=== PATIENT | male | born 1995 | race Caucasian/White ===

== ENCOUNTER 2016-11-20 21:28 | Emergency (ER) | payer BC ==
[~2016-11-20] VITALS: Ht 190.5 cm; Wt 88.5 kg
[2016-11-20 21:30] VITALS: TEMP 36.8; Ht 190.5 cm; Wt 88.5 kg
[2016-11-20] MEDS ORDERED: [UNRECOGNIZED DRUG - OTHER] PO (21:48)
[2016-11-20 22:17] LABS: BASO % 0.3 %; BASO ABS # 0.04 K/uL (0-0.2); COMPLETE YES; EOS % 1.6 %; HEMATOCRIT 47.6 % (42-52); IG% 0.3 %; LYMPH % 23.3 %; LYMPH ABS # 3.09 K/uL (1.2-3.4); MEAN CELL VOLUME 86.4 fL (80-100); MEAN CORPUSCULAR HEMOGLOBIN 30.7 pg (25-34); MEAN CORPUSCULAR HGB CONC 35.5 g/dl (32-36); NEUT % 64.5 %; PLATELET COUNT 328 K/uL (130-400); RED BLOOD COUNT 5.51 M/uL (4.7-6.1); WHITE BLOOD COUNT 13.24 K/uL (4.8-10.8)
[2016-11-20 22:33] LABS: BUN/CREATININE RATIO 18.5 (10-20); CALCIUM 9.4 mg/dl (8.5-10.1); POTASSIUM 3.3 mmol/L (3.5-5.1)
[2016-11-20] MEDS ORDERED: POTASSIUM CHLORIDE 10 MEQ TABCR PO STA (22:58)
[2016-11-20 23:03] LABS: URINE APPEARANCE CLEAR (CLEAR); URINE BILIRUBIN NEG (NEG); URINE COLOR YELLOW; URINE EPITHELIAL CELL AUTO 0-5 /lpf (0-5); URINE NITRITE NEG (NEG); URINE SPECIFIC GRAVITY 1.024 (1.000-1.030); UROBILINOGEN NEG (NEG); ZZUR CULT IF INDIC CLEAN CATCH NO
[2016-11-20 23:21] LABS: MANUAL MICROSCOPIC REQUIRED? NO; REVIEW REQ? NO
[2016-11-21] MEDS ORDERED: CEFTRIAXONE SOD 350MG/ML 1 GM VIAL IM STA (00:05)
[2016-11-21] MEDS ORDERED: DOXYCYCLINE HYCLATE 100 MG CAP PO ONE (00:15)
[2016-11-21] MEDS ORDERED: DOXY100C2 PO (00:18)
--- NOTE | 2016-11-21 00:31 | EMERGENCY ROOM VISIT NOTE ---
History First contact with patient: 21:37 Chief Complaint: TESTICULAR PAIN Stated Complaint: SWOLLEN AND PAINFUL R TESTICLE Nursing Triage Summary: C/o right testicular pain and swelling. Pt states right testicle "feels higher than normal". History of Present Illness The patient is a 21 year old male who presents to the Emergency Room with complaints of right ear pain and swelling for the past day. He describes the pain as aching, ranging in severity 5 out of 10. Nothing makes it better or worse. It does not radiate. Patient denies penile pain, penile discharge, rashes, exposure to STIs, fever, chills, back pain, abdominal pain, nausea, vomiting, diarrhea or any other medical complaints. No prior problems with his testicles. No injury to the area. no prior STIs. Review of Systems See HPI for pertinent positives & negatives. A total of 10 systems reviewed and were otherwise negative. Past Medical/Surgical History none Social History Smoking Status: Never Smoker Smokeless Tobacco Use: No Drug Use: none Occupation Status: [employer] student Current/Historical Medications Scheduled PRN [Neutrotropic Vitamin], 1 CAP PO DAILY PRN for Physical Exam Vital Signs Date Time Temp Pulse Resp B/P (MAP) Pulse Ox O2 Delivery O2 Flow Rate FiO2 11/20/16 23:31 76 18 162/94 99 Room Air 11/20/16 21:30 36.8 75 16 176/93 100 Room Air Physical Exam VITALS: Vitals are noted on the nurse's note and reviewed by myself. Vital signs stable. GENERAL: Pleasant male pacing the room who appears anxious, in no acute distress , nondiaphoretic, well-developed well-nourished. SKIN: Capillary reflex less than 2 seconds. HEENT: Normocephalic. PERRLA. EOMI. Nares patent. Mucous membranes moist. Neck is supple without nuchal rigidity. HEART: Regular rate and rhythm without murmurs gallops or rubs. LUNGS: Clear to auscultation bilaterally without wheezes, rales or rhonchi. No retractions or accessory muscle use. ABDOMEN: Positive bowel sounds x 4. Normal tympanic percussion. Soft, nontender, without masses or organomegaly. Mejia sign negative. No guarding or rebound tenderness. No CVA tenderness exam: Normal external male genitalia without rashes or lesions, right testicle right epididymis excessively tender to palpation easily reproducing symptoms, left testicle nontender, penis nontender without discharge. Cremasteric reflex intact bilaterally MUSCULOSKELETAL: No gross musculoskeletal defects. NEURO: Patient was alert and oriented to person place and time. Normal sensation to light and sharp touch. No focal neurological deficits. Medical Decision & Procedures Laboratory Results 11/20/16 22:05 Red Blood Count 5.51, Mean Corpuscular Volume 86.4, Mean Corpuscular Hemoglobin 30.7, Mean Corpuscular Hemoglobin Concent 35.5, Mean Platelet Volume 9.0, Neutrophils (%) (Auto) 64.5, Lymphocytes (%) (Auto) 23.3, Monocytes (%) (Auto) 10.0, Eosinophils (%) (Auto) 1.6, Basophils (%) (Auto) 0.3, Neutrophils # (Auto ) 8.53, Lymphocytes # (Auto) 3.09, Monocytes # (Auto) 1.33, Eosinophils # (Auto ) 0.21, Basophils # (Auto) 0.04 11/20/16 22:05 Test 11/20/16 22:05 11/20/16 22:50 White Blood Count 13.24 K/uL (4.8-10.8) Red Blood Count 5.51 M/uL (4.7-6.1) Hemoglobin 16.9 g/dL (14.0-18.0) Hematocrit 47.6 % (42-52) Mean Corpuscular Volume 86.4 fL (80-100) Mean Corpuscular Hemoglobin 30.7 pg (25-34) Mean Corpuscular Hemoglobin Concent 35.5 g/dl (32-36) Platelet Count 328 K/uL (130-400) Mean Platelet Volume 9.0 fL (7.4-10.4) Neutrophils (%) (Auto) 64.5 % Lymphocytes (%) (Auto) 23.3 % Monocytes (%) (Auto) 10.0 % Eosinophils (%) (Auto) 1.6 % Basophils (%) (Auto) 0.3 % Neutrophils # (Auto) 8.53 K/uL (1.4-6.5) Lymphocytes # (Auto) 3.09 K/uL (1.2-3.4) Monocytes # (Auto) 1.33 K/uL (0.11-0.59) Eosinophils # (Auto) 0.21 K/uL (0-0.5) Basophils # (Auto) 0.04 K/uL (0-0.2) RDW Standard Deviation 37.0 fL (36.4-46.3) RDW Coefficient of Variation 11.7 % (11.5-14.5) Immature Granulocyte % (Auto) 0.3 % Immature Granulocyte # (Auto) 0.04 K/uL (0.00-0.02) Anion Gap 9.0 mmol/L (3-11) Est Creatinine Clear Calc Drug Dose 139.7 ml/min Estimated GFR () 124.1 Estimated GFR (Non- 107.1 BUN/Creatinine Ratio 18.5 (10-20) Calcium Level 9.4 mg/dl (8.5-10.1) Urine Color YELLOW Urine Appearance CLEAR (CLEAR) Urine pH 5.0 (4.5-7.5) Urine Specific [place] 1.024 (1.000-1.030) Urine Protein NEG (NEG) Urine Glucose (UA) NEG (NEG) Urine Ketones NEG (NEG) Urine Occult Blood TRACE (NEG) Urine Nitrite NEG (NEG) Urine Bilirubin NEG (NEG) Urine Urobilinogen NEG (NEG) Urine Leukocyte Esterase NEG (NEG) Urine WBC (Auto) 0 /hpf (0-5) Urine RBC (Auto) 0-4 /hpf (0-4) Urine Hyaline Casts (Auto) 0 /lpf (0-5) Urine Epithelial Cells (Auto) 0-5 /lpf (0-5) Urine Bacteria (Auto) NEG (NEG) Medications Administered Medications (Trade) Dose Ordered Sig/Atul Route Start Time Stop Time Status Last Admin Dose Admin Potassium Chloride (Klor-Con M10) 20 meq NOW STAT PO 11/20/16 22:58 11/20/16 22:59 DC 11/20/16 23:35 20 MEQ ED Course Prior records/ancillary studies reviewed. Triage Nursing notes reviewed. The patient's history was concerning for testicular pain. Differential diagnosis: Etiologies such as epididymitis, spermatocele, varicocele, torsion, UTI, STI, renal colic, as well as others were entertained. Physical examination findings: As above. ER treatment provided: Scrotal support, Rocephin, doxy On reassessment the patient felt better. Diagnostics interpreted by me: The labs revealed leukocytosis, GC chlamydia pending Imaging studies: Ultrasound was read by stat radiology and concerning for right epididymitis Exam and history seem consistent with epididymitis. Patient was started on antibiotics. He was advised to abstain from intercourse until results are reviewed from the STI testing today and symptoms are resolved. He was advised symptoms persist to follow-up with urology or here in the ER sooner for fevers, increasing pain, vomiting, worsening signs or symptoms or as needed.By the evaluation outlined above emergent etiologies such as torsion, UTI, renal colic , as well as others were deemed relatively unlikely. The pt informed about the findings as listed above. All questions were answered and pleased with the treatment. Return instructions were outlined and the patient was discharged in stable condition. Outpatient prescription management: Doxycycline Referral: The patient was referred back to their primary care physician and urology for follow-up in 2 to 3 days for a recheck of the current condition. Case reviewed with my attending Medical Decision as above Medication Reconcilliation Current Medication List: was personally reviewed by me Blood Pressure Screening Patient's blood pressure: Normal blood pressure Impression Primary Impression: Epididymitis, right Departure Information Referrals [facility] (PCP) Patient Instructions My [facility]
[2016-11-21 00:52] VITALS: BP 135/88; PULSE 98; O2SAT 98
--- NOTE | 2016-11-21 08:11 | DIAGNOSTIC IMAGING REPORT ---
(TESTICULAR) SCROTUM-CONT CLINICAL HISTORY: 21 years-old Male with right test pain, ? epididymitis. Acute right-sided scrotal pain without reported trauma. Clinical concern for possible epididymitis. Initial exam. COMPARISON STUDY: None available TECHNIQUE: Real-time, grayscale, and color Doppler sonography of the testes and scrotum is performed. Images are reviewed in the transverse and longitudinal planes. FINDINGS: RIGHT HEMISCROTUM: The right testis measures 4.5 x 2.2 x 2.8 cm and the parenchyma appears unremarkable. No intratesticular mass is seen. Normal-appearing arterial inflow is present within the right testicle. There is a small right epididymal head cyst, 0.6 cm. Enlargement and heterogeneity with hypervascularity involves the right epididymal tail. No varicocele or hydrocele is identified. LEFT HEMISCROTUM: The left testis measures 4.7 x 2.1 x 2.7 cm and the parenchyma appears unremarkable. No intratesticular mass is seen. Normal-appearing arterial inflow is present within the left testicle. The left epididymal head appears normal. No varicocele or hydrocele is identified. IMPRESSION: 1. Findings compatible with acute right-sided epididymitis. 2. Normal sonographic appearance of the bilateral testicles without evidence of orchitis or testicular torsion. 3. Subcentimeter right epididymal head cyst. The above report was generated using voice recognition software. It may contain grammatical, syntax or spelling errors. Electronically signed by: Blayne oPrter M.D. 11/21/2016 8:10 AM Dictated Date/Time: 11/21/2016 8:06 AM
[2016-11-24 00:51] LABS: CHLAMYDIA TRACH RNA*** NOT DETECTED (NOT DETECTED); GC (NEIS GONORRHOEAE)RNA** NOT DETECTED (NOT DETECTED)
== END 2016-11-21 00:53 | disposition home or self-care (01) ==
LOC: C.EDB 21:29 → C.EDC 11-21 00:53
DX: N45.1 Epididymitis (principal)